=== PATIENT | female | born 1945 | race Caucasian/White ===

== ENCOUNTER → 2016-10-28 | Day surgery (SDC) | payer OTHER ==
[~2016-10-28] VITALS: Ht 160 cm; Wt 90.0 kg
[~2016-10-28] MED LIST: ACETAMINOPHEN 1000 MG/100 ML VIAL IV ONE; ACETAMINOPHEN/HYDROcodone 325 MG/5 MG TAB ONE; ATEN100T PO; BUPIVACAINE HCL PF 0.5% 30 ML VIAL ONE; CEPH-461 PO; DYAZ37.5 PO; FAMOTIDINE 20 MG/2 ML VIAL ONE; GABA300C5 PO; LACTATED RINGER'S 1000 ML INJ 1,000 ML ONE; LIDOCAINE HCL 2% 50 ML VIAL ONE; MIDAZOLAM HCL 2 MG/2 ML VIAL ONE; NEOMYCIN/POLYMYXIN 1 ML G.U. IRRIGANT TOPICAL ONE; NEUR300C PO; NORC5TAB PO; ceFAZolin INJ 1,000 MG VIAL ONE; fentaNYL CITRATE 250 MCG/5 ML AMP ONE
[2016-10-28 08:19] VITALS: BP 187/100; PULSE 56; RESP 20; TEMP 98.6; O2SAT 99
[2016-10-28 08:19] LABS: HEMATOCRIT 40.8 % (35.0-46.0); MEAN CELL VOLUME 85.2 FL (80.0-100.0); MEAN CORPUSCULAR HEMOGLOBIN 29.2 PG (27.0-34.0); MEAN CORPUSCULAR HGB CONC 34.3 % (32.0-36.0); PLATELET COUNT 285 TH/MM3 (150-450); RED BLOOD COUNT 4.79 MIL/MM3 (4.00-5.30); REVIEW FLAG FINAL; WHITE BLOOD COUNT 9.9 TH/MM3 (4.0-11.0)
[2016-10-28 11:09] VITALS: BP 142/80; PULSE 60; RESP 16; TEMP 98; O2SAT 99
--- NOTE | 2016-10-28 20:25 | MP ---
cc: EL SOLO III, M.D. DATE OF SURGERY: 10/28/2016. PREOPERATIVE DIAGNOSIS: Left carpal tunnel syndrome OPERATIVE PROCEDURE PERFORMED: Left open carpal tunnel release. SURGEON: El Solo III, MD. DESCRIPTION OF THE PROCEDURE IN DETAIL: The patient was brought to the operating room and placed supine on the operating table. After the correct site and side of surgery were verified by members of each team in the room multiple times including the patient and myself and after adequate preoperative markings and preoperative written consent were verified by everyone and after adequate preoperative time-out was performed to everyone's satisfaction and after adequate general anesthesia had been achieved, the left upper extremity was prepped and draped in the traditional sterile surgical fashion. A 50/50 mixture of 2% plain lidocaine and 0.5% plain Marcaine was infiltrated into the skin and subcutaneous tissue at the base of palm and into the carpal tunnel. The limb was exsanguinated with a gentle Kvng wrap and a highly placed well-padded axillary tourniquet was inflated to 220 mmHg for a total of nine minutes. A longitudinally-oriented incision within the skin crease was made at the base of the palm and carried down through the skin and subcutaneous tissue. The palmar fascia was retracted in the opposite directions. The transverse carpal ligament was identified and divided in its midline in its entirety from its proximal-most to its distal-most extent completely freeing the carpal tunnel contents. They were found to be compressed and slightly hypovascular but otherwise in continuity and otherwise non-compromised. There were no other abnormalities identified. There was no mass effect anywhere. Thorough irrigation was performed with a liters-worth of saline and the skin edges were reapproximated using running and interrupted 4-0 nylon sutures. The hand and arm were thoroughly cleansed and dried. Betadine and Adaptic dressings were applied atop the wound. A bulky soft dressing was applied over this. The axillary tourniquet released and the hand and all the fingers became immediately soft, pink, and warm and had brisk capillary refill of less than two seconds. A bulky circumferential dressing was applied in the usual fashion. The patient was awakened from anesthesia and transported to the post-anesthesia care unit awake and in stable condition at the end of the case. Sponge, needle injury counts were correct at the end of the case as reported by nurses in the room. MD TY Mahajan III/JENNIFER /10:28 AM /8:20 PM
--- NOTE | 2016-10-29 14:17 | EKG ---
Date Performed: 10/28/2016 Time Performed: 08:32:40 PTAGE: 71 years EKG: Sinus bradycardia. Normal ECG except for rate NO PREVIOUS TRACING DOCTOR: Nikunj Pelaez Interpretating Date/Time 10/29/2016 14:17:01
== END | disposition home or self-care (01) ==
LOC: PHSDC 07:08
PROVIDERS: ATTEND Orthopaedic Surgery Hand Surgery
DX: G56.02 Carpal tunnel syndrome, left upper limb (principal); I10 Essential (primary) hypertension; M06.9 Rheumatoid arthritis, unspecified; E66.9 Obesity, unspecified; Z86.73 Personal history of transient ischemic attack (TIA), and cerebral infarction without residual deficits; Z96.653 Presence of artificial knee joint, bilateral; Z88.2 Allergy status to sulfonamides; Z68.35 Body mass index [BMI] 35.0-35.9, adult
CPT/HCPCS: 36415; 64721; 85027; 93005; J0131; J0690; J2250; J3010; J7120